=== PATIENT | female | born 1960 | race Caucasian/White ===

== ENCOUNTER 2017-01-05 07:29 | Day surgery (SDC) | payer BC, OTHER ==
[~2017-01-05] VITALS: Ht 157.5 cm; Wt 55.6 kg
[~2017-01-05 07:29] MED LIST: CYAN500T2 PO; DIPH50CA4 PO; LIDOCAINE 1% (10mg/ml) 2ml SDV INJ ONE; LR 1,000 ML IV SCH; MULT1CAP47 PO; OMEP20TA2 PO
--- OUTSIDE RECORDS SUMMARY | 2017-01-05 07:32 | XMS REPORT | Continuity of Care Document ---
Author Author [facility] Organization [facility] Address Unknown Phone Unavailable Care Team Providers Care Item Processing Clerk Name Role Phone Mitzy JOHNSON MD Primary Care Physician [phone] Insurance Providers Payer Name Policy Number Subscriber Name Relationship [employer] [id number] Jarod Jones 01 Spouse Problems Medical Problems Problem Onset Date Status Viral syndrome Unknown Active Dehydration fever Unknown Active Medications Medication Dose Route Sig Days/Qty Instructions Order Date Discontinued Date Status Omeprazole 20 Mg PO DAILY 08/31/09 10/24/10 Discontinued Multivitamins W-Minerals 1 Cap PO DAILY 08/31/09 Active Omeprazole Magnesium 1 Tab PO BEDTIME 06/07/14 Active [place]-3 Fatty Acids 06/07/14 Active Cyanocobalamin (Vitamin B-12) 1 Tab PO DAILY 06/07/14 Active Social History Social History Problem Response Recorded Date/Time Smoking Status Former smoker 06/07/2014 10:08pm When did patient STOP smoking? QUIT 13 YEARS AGO 06/07/2014 10:08pm Hx Substance Use No 06/07/2014 10:08pm Hx Alcohol Use Y OCC 06/07/2014 10:08pm Hospital Discharge Instructions No hospital discharge instructions. Plan of Care No plan of care. Functional Status Query Response Date Recorded Physical Hygiene Self June 07, 2014 10:08pm Disabilities None June 07, 2014 10:08pm Devices Used Glasses June 07, 2014 10:08pm Dressing Self June 07, 2014 10:08pm Ambulation Self June 07, 2014 10:08pm Diet Self June 07, 2014 10:08pm Mental Status Alert Oriented June 07, 2014 10:08pm Disabilities None June 07, 2014 10:08pm Devices Used Glasses June 07, 2014 10:08pm Physical Hygiene Self June 07, 2014 10:08pm Dressing Self June 07, 2014 10:08pm Ambulation Self June 07, 2014 10:08pm Diet Self June 07, 2014 10:08pm Allergies, Adverse Reactions, Alerts Allergen Type Severity Reaction Status Last Updated Codeine Allergy Unknown "MENTAL MESS" Active 06/07/14 Immunizations Name Given Type Hx Influenza Vaccination No Historical Hx Pneumococcal Vaccination No Historical Hx Influenza Vaccination No Historical Vital Signs Acute Vital Signs Vital Response Date/Time Temperature (Fahrenheit) 99.5 deg F (96.8 - 99.1) Temperature (Calculated Celsius) 37.24402 degrees C (36.0 - 37.3) Pulse Rate (adult) 97 bpm (60 - 100) Respiratory Rate 18 breaths/min (10 - 20) O2 Sat by Pulse Oximetry 99 % (90 - 100) Blood Pressure 91/55 mm Hg Height 5 ft 2.5 in Weight 182 lb Body Mass Index 32.0 kg/m^2 Results Test Source Date Result Interp. Ref. Range Comments Alanine Aminotransferase (ALT/SGPT) June 07, 2014 9:22pm 27 U/L N 9- 52 Albumin June 07, 2014 9:22pm 4.0 G/DL N 3.5-5.0 Albumin/Globulin Ratio June 07, 2014 9:22pm 1.4 RATIO N 1.1-2.2 Alkaline Phosphatase June 07, 2014 9:22pm 67 U/L N 38-126 Anion Gap June 07, 2014 9:22pm 14 MEQ/L N 5-15 Aspartate Amino Transf (AST/SGOT) June 07, 2014 9:22pm 19 U/L N 14- 36 BUN/Creatinine Ratio June 07, 2014 9:22pm 19 RATIO N 6-26 Band Neutrophils # June 07, 2014 9:22pm 0.4 T/MM3 - Band Neutrophils % June 07, 2014 9:22pm 13.0 % H 0-6 Blood Urea Nitrogen June 07, 2014 9:22pm 26.0 MG/DL H 7-17 Calcium Level June 07, 2014 9:22pm 9.5 MG/DL N 8.4-10.2 Calculated Osmolality June 07, 2014 9:22pm 286 MOSM/KG H 261-280 Carbon Dioxide Level June 07, 2014 9:22pm 26 MEQ/L N 22-30 Chloride Level June 07, 2014 9:22pm 106 MEQ/L N 98-107 Creatinine June 07, 2014 9:22pm 1.4 MG/DL H 0.7-1.2 Globulin June 07, 2014 9:22pm 2.8 G/DL N 2.4-3.6 Glucose Level June 07, 2014 9:22pm 103 MG/DL N 65-110 Hematocrit June 07, 2014 9:22pm 36.3 % N 36-46 Hemoglobin June 07, 2014 9:22pm 12.2 GM/DL N 12-16 Influenza Type A Antigen June 07, 2014 9:22pm Negative - Negative for Flu A protein antigen. Assay sensitivity is90%. Influenza Type B Antigen June 07, 2014 9:22pm Negative - Negative for Flu B protein antigen. Assay sensitivity is90%. Lymphocytes # (Manual) June 07, 2014 9:22pm 0.2 T/MM3 L 1-4.8 Lymphocytes % (Manual) June 07, 2014 9:22pm 6.0 % L 23-45 Mean Corpuscular Hemoglobin June 07, 2014 9:22pm 29.8 UUG N 26-34 Mean Corpuscular Hemoglobin Concent June 07, 2014 9:22pm 33.6 GM/DL N 31-37 Mean Corpuscular Volume June 07, 2014 9:22pm 88.5 UM3 N 80-100 Mean Platelet Volume June 07, 2014 9:22pm 10.3 UM3 N 9.4-12.4 Monocytes # (Manual) June 07, 2014 9:22pm 0.1 T/MM3 N 0-0.8 Monocytes % (Manual) June 07, 2014 9:22pm 2.0 % N 0-9.0 Neutrophils # (Manual) June 07, 2014 9:22pm 2.6 T/MM3 N 1.8-7.7 Neutrophils % (Manual) June 07, 2014 9:22pm 79.0 % H 33-66 Platelet Count June 07, 2014 9:22pm 176 T/MM3 N 130-400 Potassium Level June 07, 2014 9:22pm 3.4 MEQ/L L 3.6-5 RDW Standard Deviation June 07, 2014 9:22pm 40.9 FL N 36.9-50.2 Red Blood Count June 07, 2014 9:22pm 4.10 M/MM3 N 4.00-5.20 Sodium Level June 07, 2014 9:22pm 146 MEQ/L H 134-144 Total Bilirubin June 07, 2014 9:22pm 0.70 MG/DL N 0.20-1.30 Total Protein June 07, 2014 9:22pm 6.8 G/DL N 6.3-8.2 Urine Bilirubin June 07, 2014 9:58pm Negative - Has specimen been collected/obtained? Y Urine Blood June 07, 2014 9:58pm Trace-lysed H - Has specimen been collected/obtained? Y Urine Collection Type June 07, 2014 9:58pm Cleancatch-midstream - Has specimen been collected/obtained? Y Urine Color June 07, 2014 9:58pm Yellow - Has specimen been collected/obtained? Y Urine Glucose (UA) June 07, 2014 9:58pm Negative - Has specimen been collected/obtained? Y Urine Ketones June 07, 2014 9:58pm Negative - Has specimen been collected/obtained? Y Urine Leukocyte Esterase June 07, 2014 9:58pm Negative - Has specimen been collected/obtained? Y Urine Nitrite June 07, 2014 9:58pm Negative - Has specimen been collected/obtained? Y Urine Protein June 07, 2014 9:58pm Negative - Has specimen been collected/obtained? Y Urine Specific Virgil June 07, 2014 9:58pm 1.020 - Has specimen been collected/obtained? Y Urine Turbidity June 07, 2014 9:58pm Clear - Has specimen been collected/obtained? Y Urine Urobilinogen June 07, 2014 9:58pm 0.2 EU/DL - Has specimen been collected/obtained? Y Urine pH June 07, 2014 9:58pm 6.0 - Has specimen been collected/ obtained? Y White Blood Count June 07, 2014 9:22pm 3.3 T/MM3 L 4.5-11.0 Chemistry Specimen Hemolysis June 07, 2014 9:22pm < 15 0-25 0-25: No Hemolysis.26-70: Slight Hemolysis - can falsely elevate K and Urine Protein. 71-285: Moderate Hemolysis - can falsely elevate K, Troponin I, CA 19-9, PTH, CSF GLucose, and Urine Protein, and can falsely decrease Phenytoin. 286-999: Gross Hemolysis - can falsely elevate K, Troponin I, CA 19-9, PTH, CSF Glucose, and Urine Protine, and can falsely decrease Phenytoin. Recommend specimen recollection. Urinalysis Comment June 07, 2014 9:58pm Microscopic not ind. - Has specimen been collected/obtained? Y Turbidity June 07, 2014 9:22pm < 20 0-20 Glomerular Filtration Rate Calc June 07, 2014 9:22pm 39 - Icterus Index June 07, 2014 9:22pm < 2 0-7 Procedures No known history of procedures. Encounters Encounter Location Date/Time Departed Emergency Room [facility] 06/07/14 7:22pm Recent Diagnosis
--- OUTSIDE RECORDS SUMMARY | 2017-01-05 07:32 | XMS REPORT | Continuity of Care Document ---
Author Author [facility] Organization [facility] Address Unknown Phone Unavailable Allergies Medications Problems Date Dx Coded Attending Type Code Diagnosis Diagnosed By 11/08/2015 Curt Quinones M.D. H53.8 OTHER VISUAL DISTURBANCES 11/08/2015 Joni Robledo, Curt Urbano R11.0 NAUSEA 11/08/2015 Joni Robledo, Curt Urbano S09.90XA UNSPECIFIED INJURY OF HEAD, INITIAL ENCOUNTER 11/08/2015 Curt Quinones M.D. S60.512A ABRASION OF LEFT HAND, INITIAL ENCOUNTER 11/08/2015 Curt Quinones M.D. V81.7XXA OCC OF RAIL TRN/VEH INJ IN DERAIL W/O ANTECEDENT C 11/08/2015 Joni Robledo, Curt Urbano Y92.[address] 11/08/2015 Curt Quinones M.D. Y93.89 ACTIVITY, OTHER SPECIFIED 11/08/2015 Joni Robledo, Curt Urbano Z87.891 PERSONAL HISTORY OF NICOTINE DEPENDENCE Procedures Results Encounters ACCT No. Visit Date/Time Discharge Status Pt. Type Provider Facility Loc./Unit Complaint [id number] 11/08/2015 01:29:00 2015 05:17:00 DIS Emergency Curt Quinones M.D. [facility] DKerryER
[2017-01-05 07:43] VITALS: BP 128/77; PULSE 73; RESP 14; TEMP 98.8; O2SAT 96; Ht 157.5 cm; Wt 55.6 kg
--- NOTE | 2017-01-05 08:52 | ANESPREOP ---
Anesthesia Record Date and Time DATE: 01/05/17 TIME: 08:51 Proposed Surgical Procedure EGD & COLONOSCOPY NPO since: mn Allergies: Coded Allergies: codeine (Verified Adverse Reaction, Unknown, "MENTAL MESS", 01/05/17) Ht/Wt/BMI Height: 5 ' 2.00 " Weight: 55.600 kg BMI: 22.4 kg/m2 Vital Signs Date Time Temp Pulse Resp B/P Pulse Ox O2 Delivery O2 Flow Rate FiO2 01/05/17 07:43 98.8 73 14 128/77 96 Room Air Medications Inpatient Medications Current Medications Medications (Trade) Dose Ordered Sig/Darrian Start Time Stop Time Status Last Admin Dose Admin Lactated Ringer's (Lactated Ringers) 1,000 ml @ 50 mls/hr Q20H 01/05/17 07:00 01/05/17 08:03 50 MLS/HR Cyanocobalamin (Vitamin B-12) (Vitamin B-12) 500 Mcg Tablet, 1 TAB PO DAILY, ( Reported) Last Taken: on 01/03/17 0800 Diphenhydramine HCl (Diphenhydramine HCl) 50 Mg Capsule, 1 CAP PO HS PRN for SLEEPLESSNESS, (Reported) Last Taken: on 01/03/17 0800 Multivitamins W-Minerals (Multivitamin) 1 Cap Capsule, 1 CAP PO DAILY, (Reported) Last Taken: on 01/03/17 0800 Omeprazole Magnesium (Prilosec Otc) 20 Mg Tablet.dr, 1 TAB PO HS, (Reported) Last Taken: on 01/05/17 0645 Currently on Beta Demetri: No Medical/Surgical History Anesthesia PMH: Reports: Anesthesia Reactions (NO AIRWAY ISSUES, N&V), Murmur ( per patient, asymptomatic), Reflux Smoking Status: Former smoker (quit 15 years ago) Use Chewing Tobacco?: No Second Hand Exposure: No Substance Use Type: does not use Alcohol Intake: none HX of Last Menstrual Period: AROUND AGE 51 Past Surgical History Orthopedic Surgeries: Abdominal Surgeries: Genitourinary Surgeries: Cardiac Surgeries: Endocrine Surgeries: Reproductive Surgeries: Yes - I&D OF BREAST X2 Neurological Surgeries: Ear Surgeries: Nose Surgeries: Throat Surgeries: Other Surgeries: - COLONOSCOPY X2 Anesthesia Adverse Reactions: FOUND none Family Hx of Anesthesia Advers: none Hx of Motion Sickness: No Physical Exam Respiratory: Bilat breath sounds equal, Lungs clear Cardiovascular: FOUND Regular rate, rhythm Airway Assessment Mallampati Score: II TMD: 3 Fingerbreadths Neck Extension: Fair Overall Assessment: No Airway Concerns ASA: 2 Plan Anesthesia Plan: TIVA, GETA Discussion Discussed risks/options/alternatives of anesthesia and questions answered. Patient consents. Nursing pain assessment noted. Present: Family Member Attestation Statement Prior to the delivery of any anesthetic medication, I examined the patient, developed the plan, obtained the patient's consent and discussed the risk and benefits of the procedure with the patient/guardian. JAROD BOSTON [employer] SUPERVISOR January 05, 2017 08:52
[2017-01-05] MEDS ORDERED: PROPOFOL 500mg 50 ML IV ONE (09:16)
[2017-01-05] MEDS ORDERED: BENZOCAINE 20% Top. Anesth. SPRAY UD ONE (09:43)
[2017-01-05] MEDS ORDERED: LIDOCAINE VISCOUS 2% Oral Soln 15ml UD ONE (09:43)
[2017-01-05 10:42] VITALS: BP 120/90; PULSE 79; RESP 12; TEMP 97.6; O2SAT 97
--- NOTE | 2017-01-05 10:46 | GSPOSTPROC ---
Immediate Operative Note DATE: 01/05/17 TIME: 10:46 Postop Diagnosis: Diarrhea Surgical Procedure: EGD w/Biopsies, C-scope w/Biopsies Surgeon: Vincent ASA: 2 ODIN PIERRE MD January 05, 2017 10:46
--- NOTE | 2017-01-05 10:50 | ANESPO ---
Post-Op Note Date 01/05/17 Time: 10:49 Status Pt Participated in Evaluation: Pt participated in person Vital Signs Date Time Temp Pulse Resp B/P Pulse Ox O2 Delivery O2 Flow Rate FiO2 01/05/17 07:43 98.8 73 14 128/77 96 Room Air Respiratory Function: Airway patent, Regular respirations Cardiovascular Function: Regular pulse Mental Status: Alert/oriented Pain Level Intensity: 0 Hydration: Taking po fluids Complications during Recovery None apparent Follow-Up Instructions Instructions Per Surgeon JAROD BOSTON CRNA January 05, 2017 10:50
[2017-01-05 10:55] VITALS: BP 111/58; PULSE 69; RESP 18; O2SAT 98
[2017-01-05 11:10] VITALS: BP 129/59; PULSE 59; RESP 14; O2SAT 100
[2017-01-05 11:25] VITALS: BP 168/70; PULSE 62; RESP 18; O2SAT 94
--- NOTE | 2017-01-05 15:03 | OPNOTEF ---
DATE OF OPERATION 01/05/2017 PREOPERATIVE DIAGNOSES 1. Long-standing gastroesophageal reflux disease. 2. Hematochezia of 33 years' duration. 3. Persistent diarrhea. 4. Szgkdtgc-[id number] sigmoid colon diverticulosis. 5. Positive family history of colon carcinoma. POSTOPERATIVE DIAGNOSES 1. Long-standing gastroesophageal reflux disease. 2. Small hiatal hernia. 3. Internal and external hemorrhoids. 4. Hematochezia of 33 years' duration. 5. Persistent diarrhea. 6. Moderate sigmoid colon diverticulosis. 7. Positive family history of colon carcinoma. OPERATION Esophagogastroduodenoscopy with biopsies and total colonoscopy with biopsies. SURGEON Dr. Kaur ANESTHESIA TIVA ASA Class 2 FINDINGS Mucosa was normal throughout the esophagus, stomach and duodenum. There was no distal esophagitis. There were no esophageal erosions or ulcers. There were no Koch's esophagus changes at the esophagus. The patient does have a small hiatal hernia. There were no colon or rectal tumors. There were no colon or rectal polyps. There was no melanosis coli. There were no colonic angiodysplasia lesions. The patient does have some moderate diverticulosis throughout the colon. There was no evidence of any inflammatory bowel disease anywhere at the colon or rectum. The patient does have some prominent internal and external hemorrhoids. No bright red blood or old blood was seen anywhere at the colon or rectum at the time of the procedure today. It was thought at the conclusion of the procedure that the hematochezia experienced by the patient is due to bleeding from internal hemorrhoids. DESCRIPTION OF OPERATION The patient was brought to the endoscopy room. The patient was placed on a cart in the endoscopy room. The patient was placed in left lateral recumbent position on the cart. The patient was premedicated with intravenous sedation medication administered by the nurse purse seining hand. The Olympus upper GI endoscope was used. The upper GI endoscope was introduced into the esophagus. The upper GI endoscope was advanced down through the esophagus and stomach and into the duodenum. The tip of the upper GI endoscope was advanced down through the duodenum beyond the level of the duodenal bulb. Endoscopic biopsy forceps was used to obtain biopsies of duodenal mucosa at this level. These biopsy specimens were submitted for study by the pathologist. This was done to look for any evidence of celiac disease as a cause for the persistent diarrhea. The upper GI endoscope was then withdrawn back through the duodenum and through the pylorus back into the stomach. The upper GI endoscope upper GI endoscope was retroflexed and the gastroesophageal junction was viewed from below. The upper GI endoscope was straightened out. The stomach was examined further. The upper GI endoscope was then withdrawn out through the stomach and esophagus and removed from the patient. The patient was kept in left lateral recumbent position on the cart in the endoscopy room. The patient continued to receive intravenous sedation medication administered by the nurse purse seining hand. Total colonoscopy was performed. The Olympus colonoscope was used. The colonoscope was introduced into the rectum. The colonoscope was advanced up through the rectum and colon all way up to the cecum. The appendiceal orifice was visualized. The ileocecal valve was visualized. The colonoscope was then withdrawn out through the colon and rectum. As the colonoscope was withdrawn out through the colon and rectum, the endoscopic biopsy forceps was used to obtain random biopsies of mucosa at the ascending colon, transverse colon, descending colon, sigmoid colon and rectum. These biopsy specimens were submitted for study by the pathologist. The colonoscope was then removed from the rectum. Digital rectal examination was performed. Findings throughout the procedure were as described above. The patient did continue to receive intravenous sedation medication administered by the nurse purse seining hand throughout the operation. The patient did tolerate the operation well. SHASTA
== END 2017-01-05 11:48 | disposition home or self-care (01) ==
LOC: SCU 07:29
PROVIDERS: ATTEND Surgery
DX: K29.80 Duodenitis without bleeding (principal); K21.9 Gastro-esophageal reflux disease without esophagitis; K44.9 Diaphragmatic hernia without obstruction or gangrene; K64.8 Other hemorrhoids; K64.4 Residual hemorrhoidal skin tags; K92.1 Melena; R19.7 Diarrhea, unspecified; K57.30 Diverticulosis of large intestine without perforation or abscess without bleeding; Z80.0 Family history of malignant neoplasm of digestive organs; Z79.899 Other long term (current) drug therapy; Z87.891 Personal history of nicotine dependence
CPT/HCPCS: 43239; 45380; J2704; J7120